=== PATIENT | female | born 1960 ===

== ENCOUNTER 2017-08-28 06:38 | Day surgery (SDC) | payer OTHER ==
[~2017-08-28] VITALS: Ht 165.1 cm; Wt 55.3 kg
[2017-08-28 07:12] VITALS: BP 126/79
[2017-08-28 09:34] VITALS: BP 112/63
== END 2017-08-28 10:45 | disposition home or self-care (01) ==
LOC: GI 06:38 → OR 07:30 → GI 10:45
PROVIDERS: Internal Medicine Gastroenterology
PROC: 0DBH8ZZ Excision of Cecum, Via Natural or Artificial Opening Endoscopic (ICD-10-PCS; principal; 2017-08-28 07:30)
DX: Z12.11 Encounter for screening for malignant neoplasm of colon (principal); D12.0 Benign neoplasm of cecum; Z68.20 Body mass index [BMI] 20.0-20.9, adult; Z80.0 Family history of malignant neoplasm of digestive organs; Z86.010 Personal history of colon polyps
CPT/HCPCS: 45378; J1200; J1610; J2250; J2310; J3010; J3490